=== PATIENT | female | born 1970 | race Caucasian/White ===

== ENCOUNTER 2019-10-01 07:27 | Emergency (ER) | payer BC ==
[2019-10-01 07:50] VITALS: BP 124/66
--- NOTE | 2019-10-01 08:13 | UC ---
Elbow Pain - HPI Summary HPI Summary: 49-year-old female presents after fall. She was At this morning and slipped on ice. She had her elbow and wrist. She is concerning at this time for however his pain. Worsened symptoms with movement. Nothing of her symptoms. She has no meds prior to arrival. She did not have any head injury or with any concerns relative consciousness. no concern about shoulder - History of Current Complaint Chief Complaint: UCRespiratory Stated Complaint: LT SHOULDER ELBOW WRIST Time Seen by Provider: 10/01/19 07:59 Hx Last Menstrual Period: yrs ?: No Pain Intensity: 5 - Allergies/Home Medications Allergies/Adverse Reactions: Allergies Allergy/AdvReac Type Severity Reaction Status Date / Time seasonal Allergy Eyes Uncoded 10/01/19 07:52 Itchy/Swollen/Red/Watery Home Medications: Home Medications Levonorgestrel (IUD) (NF) [Mirena (NF)] 20 mcg IU ONCE 06/07/16 [History Confirmed 10/01/19] Ibuprofen TAB* [Motrin TAB* 400 MG] 400 mg PO ONCE PRN 10/01/19 [History Confirmed 10/01/19] PMH/Surg Hx/FS Hx/Imm Hx Previously Healthy: No - Surgical History Surgical History: Yes Surgery Procedure, Year, and Place: 2 c-sections. breast reduction. T&A - Family History Known Family History: Positive: Other - grandmother had arthritis, but no hx of RA in the family - Social History Alcohol Use: None Substance Use Type: None Smoking Status (MU): Never Smoked Tobacco Review of Systems All Other Systems Reviewed And Are Negative: Yes Musculoskeletal: Positive: Decreased ROM, Edema. Negative: Calf Tenderness - as Is Patient Immunocompromised?: No Physical Exam Triage Information Reviewed: Yes Appearance: Well-Appearing, No Pain Distress, Well-Nourished Vital Signs: Initial Vital Signs Temp 99.1 F 10/01/19 07:44 Pulse 69 10/01/19 07:44 Resp 18 10/01/19 07:44 BP 124/66 10/01/19 07:44 Pulse Ox 100 10/01/19 07:44 Vital Signs Reviewed: Yes Eye Exam: Normal ENT: Positive: Hearing grossly normal Neck: Positive: 1 Respiratory Exam: Normal Cardiovascular Exam: Normal Musculoskeletal Exam: Normal Musculoskeletal: Positive: Strength Intact - is, ROM Intact, Edema @ - left elbow, Other: - strength 5/5 and sensation intact. cap refill < 3 sec. brosk peripheral pulses. no edema in wrist. wrist pain with active motion. FROM Neurological Exam: Normal Psychological Exam: Normal Skin Exam: Normal Diagnostics - Radiology No standard instances Radiology Interpretation Completed By: Radiologist Summary of Radiographic Findings: negative Elbow Pain Course/Dx - Course Course Of Treatment: xray neg. xray states to f/u in 7-10 days for re-eval to ensure no fx since effusion present. pt aware and agree to this either at PCO/ortho/here . she declined meds/LEONID/brace - Differential Dx/Diagnosis Differential Diagnosis/HQI/PQRI: Bursitis, Fracture (Closed), Sprain, Strain Provider Diagnosis: Elbow contusion, Wrist pain Discharge ED - Sign-Out/Discharge Documenting (check all that apply): Patient Departure All imaging exams completed and their final reports reviewed: Yes - Discharge Plan Condition: Good Disposition: HOME Patient Education Materials: Contusion in Adults (ED) Referrals: No Primary Care Phys,NOPCP [Primary Care Provider] - 7 Days Ashu Dickerson MD [Medical Doctor] - 7 Days (Ortho referral to recheck x-ray in 7 -10 days ) - Billing Disposition and Condition Condition: GOOD Disposition: Home
== END 2019-10-01 08:56 | disposition home or self-care (01) ==
LOC: UCCORT 07:27
DX: S50.02XA Contusion of left elbow, initial encounter (principal); M25.532 Pain in left wrist; W00.0XXA Fall on same level due to ice and snow, initial encounter; Y92.9 Unspecified place or not applicable; Z91.09 Other allergy status, other than to drugs and biological substances
CPT/HCPCS: 99201; G0463